=== PATIENT | female | born 1950 | race Caucasian/White ===

== ENCOUNTER 2021-08-30 13:31 | Outpatient (CLI) | payer MEDICARE | END 2021-08-30 13:32 | disposition home or self-care (01) | LOC: BICULT 13:31 | PROVIDERS: ATTEND Internal Medicine Nephrology | DX: I13.10 Hypertensive heart and chronic kidney disease without heart failure, with stage 1 through stage 4 chronic kidney disease, or unspecified chronic kidney disease (principal); N17.9 Acute kidney failure, unspecified; N18.9 Chronic kidney disease, unspecified; J44.9 Chronic obstructive pulmonary disease, unspecified; I25.10 Atherosclerotic heart disease of native coronary artery without angina pectoris; M19.90 Unspecified osteoarthritis, unspecified site | CPT/HCPCS: 76770; 93975 ==

== ENCOUNTER 2022-12-22 00:59 | Inpatient (IN) | payer MEDICARE ==
[2022-12-22] MEDS ORDERED: Dexamethasone 10 MG/ML VIAL ONE ×2 (02:12→06:09)
[2022-12-22] MEDS ORDERED: Pantoprazole 40 MG VIAL ONE (02:12)
[2022-12-22] MEDS ORDERED: Ondansetron ODT 4 MG TAB PO PRN (02:35)
[2022-12-22] MEDS ORDERED: Acetaminophen 325 MG TAB PO PRN (02:35)
[2022-12-22] MEDS ORDERED: Senokot S 8.6-50 MG TAB PO PRN (02:35)
[2022-12-22] MEDS ORDERED: Lorazepam 2 MG/ML VIAL SLOW IVP PRN (03:37)
[2022-12-22 04:56] LABS: #Neutrophils 7.9 thou/uL (1.40-6.50); %Basophils 0.2 % (0.0-1.0); %Eosinophils 0.1 % (0.0-10.0); %Lymphocytes 7.6 % (21.0-51.0); %Monocytes 0.5 % (0.0-10.0); %Neutrophils 91.4 % (42.0-75.0); Hematocrit 42.4 % (36.0-47.0); Hemoglobin 14.2 g/dL (12.0-16.0); Mean Corpuscular HGB CONC 33.5 g/dL (32.0-36.0); Mean Corpuscular Hemoglobin 30.7 pg (27.0-31.0); Mean Corpuscular Volume 91.6 fl (78.0-98.0); Mean Platelet Volume 10.7 fL (7.4-10.4); Platelet Count 244 10x3/uL (130-400); Red Blood Cell (RBC) Count 4.63 mill/uL (4.20-5.40); White Blood Cell (WBC) Count 8.6 10x3/uL (4.8-10.8)
[2022-12-22 05:20] LABS: Anion Gap 14 mmol/L (10-20); BUN (Urea Nitrogen) 14 mg/dL (9.8-20.1); Calc. Creatinine Clearance 68 mL/min (70-130); Carbon Dioxide 19 mmol/L (23-31); Chloride 107 mmol/L (98-107); Estimated GFR 85; Glucose 159 mg/dL (83-110); Potassium 3.9 mmol/L (3.5-5.1); Sodium 136 mmol/L (136-145)
[2022-12-22] MEDS ORDERED: Dexamethasone 4 mg/ml Vial SLOW IVP SCH ×2 (06:00→08:45)
[2022-12-22] MEDS ORDERED: Famotidine 20 MG TAB PO SCH (09:00)
[2022-12-22] MEDS: Pantoprazole 40 MG VIAL IVP SCH ×2 (10:14→20:23)
[2022-12-22] MEDS ORDERED: FLU VACC QS2023(65UP)/MF59C/PF 60 MCG/0.5 ML SYRINGE IM ONE (12:00)
[2022-12-22] MEDS ORDERED: Iopamidol-370 76% 500 ML MDV (1 ML CHARGE) ONE (13:26)
[2022-12-22] MEDS: Dexamethasone 4 mg/ml Vial SLOW IVP SCH ×3 (13:36→22:47)
[2022-12-22] MEDS ORDERED: Magnevist 469MG/ML 20 ML VIAL ONE (13:40)
[2022-12-22] MEDS ORDERED: Benzonatate 100 MG CAP PO PRN (22:16)
[2022-12-22] MEDS ORDERED: diphenhydrAMINE 50 MG/ML VIAL IVP PRN (22:21)
[2022-12-23 03:47] LABS: #Monocytes 0.6 thou/uL (0.11-0.59); #Neutrophils 13.5 thou/uL (1.40-6.50); %Basophils 0.1 % (0.0-1.0); %Eosinophils 0.1 % (0.0-10.0); %Lymphocytes 6.2 % (21.0-51.0); %Monocytes 3.6 % (0.0-10.0); %Neutrophils 89.6 % (42.0-75.0); Hematocrit 40.7 % (36.0-47.0); Hemoglobin 13.7 g/dL (12.0-16.0); Mean Corpuscular HGB CONC 33.7 g/dL (32.0-36.0); Mean Corpuscular Hemoglobin 30.3 pg (27.0-31.0); Mean Platelet Volume 10.6 fL (7.4-10.4); Platelet Count 253 10x3/uL (130-400); RBC Distribution Width 13.2 % (11.5-14.5); Red Blood Cell (RBC) Count 4.52 mill/uL (4.20-5.40); White Blood Cell (WBC) Count 15.1 10x3/uL (4.8-10.8)
[2022-12-23 04:00] LABS: INR-International Normal Ratio 1.1; Prothrombin Time 15.1 sec (12.0-14.7)
[2022-12-23 04:14] LABS: Anion Gap 14 mmol/L (10-20); BUN (Urea Nitrogen) 16 mg/dL (9.8-20.1); Calc. Creatinine Clearance 64 mL/min (70-130); Calcium 8.9 mg/dL (7.8-10.44); Carbon Dioxide 20 mmol/L (23-31); Chloride 107 mmol/L (98-107); Estimated GFR 80; Glucose 156 mg/dL (83-110); Potassium 3.7 mmol/L (3.5-5.1); Sodium 137 mmol/L (136-145)
[2022-12-23] MEDS: Dexamethasone 4 mg/ml Vial SLOW IVP SCH ×4 (05:27→23:59)
[2022-12-23] MEDS: Pantoprazole 40 MG VIAL IVP SCH ×2 (08:47→20:00)
[2022-12-23] MEDS ORDERED: Iopamidol-370 76% 500 ML MDV (1 ML CHARGE) ONE (09:55)
[2022-12-23] MEDS: Cholecalciferol 1,000 UNITS (25 MCG) TAB PO SCH (20:05)
[2022-12-23] MEDS: Multivit, Therapeutic 1 TAB PO SCH (20:05)
[2022-12-24 04:01] LABS: #Monocytes 0.3 thou/uL (0.11-0.59); #Neutrophils 9.3 thou/uL (1.40-6.50); %Basophils 0.1 % (0.0-1.0); %Eosinophils 0.1 % (0.0-10.0); %Lymphocytes 6.9 % (21.0-51.0); %Neutrophils 89.5 % (42.0-75.0); Hematocrit 38.9 % (36.0-47.0); Mean Corpuscular HGB CONC 33.4 g/dL (32.0-36.0); Mean Corpuscular Hemoglobin 30.6 pg (27.0-31.0); Mean Corpuscular Volume 91.5 fl (78.0-98.0); Mean Platelet Volume 10.8 fL (7.4-10.4); Platelet Count 269 10x3/uL (130-400); RBC Distribution Width 13.4 % (11.5-14.5); Red Blood Cell (RBC) Count 4.25 mill/uL (4.20-5.40); White Blood Cell (WBC) Count 10.4 10x3/uL (4.8-10.8)
[2022-12-24 04:27] LABS: Anion Gap 13 mmol/L (10-20); BUN (Urea Nitrogen) 20 mg/dL (9.8-20.1); Calc. Creatinine Clearance 62 mL/min (70-130); Calcium 8.8 mg/dL (7.8-10.44); Carbon Dioxide 23 mmol/L (23-31); Chloride 107 mmol/L (98-107); Estimated GFR 77; Glucose 158 mg/dL (83-110); Magnesium 1.8 mg/dL (1.6-2.6); Potassium 3.6 mmol/L (3.5-5.1); Sodium 139 mmol/L (136-145)
[2022-12-24] MEDS: Dexamethasone 4 mg/ml Vial SLOW IVP SCH ×3 (05:28→17:36)
[2022-12-24] MEDS: Atenolol 25 MG TAB PO SCH (08:35)
[2022-12-24] MEDS: Pantoprazole 40 MG VIAL IVP SCH (08:35)
[2022-12-24] MEDS ORDERED: ALPRAZolam 0.25 MG TAB PO PRN ×2 (08:55→08:57)
[2022-12-24] MEDS ORDERED: Atenolol 25 MG TAB PO PRN (08:57)
[2022-12-24] MEDS ORDERED: Magnesium 2 GM/50 ML(in water) 2 GM in Premix Bag 1 BAG IVPB SCH (09:00)
[2022-12-24] MEDS ORDERED: Potassium Chloride 10 MEQ TAB PO SCH (09:15)
[2022-12-24] MEDS: busPIRone HCl 5 MG TAB PO SCH (09:28)
[2022-12-24] MEDS: FLUoxetine HCl 20 MG CAP PO SCH (09:28)
[2022-12-24] MEDS: Topiramate 100 MG TAB PO SCH ×3 (09:29→20:38)
[2022-12-24 17:53] VITALS: BP 127/83
[2022-12-24] MEDS: Multivit, Therapeutic 1 TAB PO SCH (20:38)
[2022-12-24] MEDS: Cholecalciferol 1,000 UNITS (25 MCG) TAB PO SCH (20:38)
[2022-12-24] MEDS ORDERED: Loratadine 10 MG TAB PO SCH (22:15)
[2022-12-25] MEDS: Dexamethasone 4 mg/ml Vial SLOW IVP SCH ×3 (00:01→12:10)
[2022-12-25 04:11] LABS: #Monocytes 0.5 thou/uL (0.11-0.59); #Neutrophils 10.3 thou/uL (1.40-6.50); %Basophils 0.2 % (0.0-1.0); %Eosinophils 0.3 % (0.0-10.0); %Lymphocytes 8.1 % (21.0-51.0); %Monocytes 4.5 % (0.0-10.0); %Neutrophils 86.5 % (42.0-75.0); Hematocrit 41.2 % (36.0-47.0); Hemoglobin 13.6 g/dL (12.0-16.0); Mean Corpuscular Hemoglobin 30.4 pg (27.0-31.0); Mean Platelet Volume 10.6 fL (7.4-10.4); Platelet Count 269 10x3/uL (130-400); RBC Distribution Width 13.4 % (11.5-14.5); Red Blood Cell (RBC) Count 4.48 mill/uL (4.20-5.40); White Blood Cell (WBC) Count 11.9 10x3/uL (4.8-10.8)
[2022-12-25 04:40] LABS: Anion Gap 14 mmol/L (10-20); BUN (Urea Nitrogen) 20 mg/dL (9.8-20.1); Calc. Creatinine Clearance 60 mL/min (70-130); Carbon Dioxide 22 mmol/L (23-31); Chloride 106 mmol/L (98-107); Estimated GFR 79; Glucose 139 mg/dL (83-110); Magnesium 2.1 mg/dL (1.6-2.6); Potassium 3.9 mmol/L (3.5-5.1); Sodium 138 mmol/L (136-145)
[2022-12-25 08:24] VITALS: TEMP 98.2
[2022-12-25] MEDS: Atenolol 25 MG TAB PO SCH (08:30)
[2022-12-25] MEDS: Topiramate 100 MG TAB PO SCH (08:30)
[2022-12-25] MEDS: busPIRone HCl 5 MG TAB PO SCH (08:30)
[2022-12-25] MEDS: FLUoxetine HCl 20 MG CAP PO SCH (08:30)
[2022-12-25] MEDS ORDERED: Loratadine 10 MG TAB PO SCH (21:00)
== END 2022-12-25 13:45 | disposition home or self-care (01) | DRG 70 ==
LOC: ERS 00:59 → ERHOLD 02:42 → IMCU/EMU 08:05
PROVIDERS: ADMIT Student in an Organized Health Care Education/Training Program; ATTEND Internal Medicine
DX: G93.89 Other specified disorders of brain (principal); G93.6 Cerebral edema; I61.9 Nontraumatic intracerebral hemorrhage, unspecified; Z51.5 Encounter for palliative care; F41.9 Anxiety disorder, unspecified; R29.704 NIHSS score 4; I12.9 Hypertensive chronic kidney disease with stage 1 through stage 4 chronic kidney disease, or unspecified chronic kidney disease; N18.2 Chronic kidney disease, stage 2 (mild); E87.6 Hypokalemia; E83.42 Hypomagnesemia; R59.0 Localized enlarged lymph nodes; R91.8 Other nonspecific abnormal finding of lung field; Z80.1 Family history of malignant neoplasm of trachea, bronchus and lung; Z79.899 Other long term (current) drug therapy; Z98.890 Other specified postprocedural states; Z87.891 Personal history of nicotine dependence; D43.2 Neoplasm of uncertain behavior of brain, unspecified
CPT/HCPCS: 36415; 36416; 70450; 70460; 70553; 71270; 74178; 80048; 80053; 83735; 85025; 85610; 85730; 93005; 95816; 95819; 96374; 96375; A9579; C9113; J1100; J2060; J3475; Q9967